=== PATIENT | male | born 1940 | race Caucasian/White ===

== ENCOUNTER 2017-04-07 13:00 | Inpatient (IN) | payer MEDICARE, OTHER ==
[~2017-04-07] VITALS: Ht 177.8 cm; Wt 84.0 kg
--- NOTE | ~2017-04-07 | CON ---
PATIENT'S NAME: JANIS DONNELLY [facility] AGE: 76 Y [address] ROOM: [place] [address] LOCATION: [facility] ADMIT DATE: 04/14/2017 Consultation DISCHARGE DATE: FAMILY PHYSICIAN: Jim Leong MD ATTENDING PHYSICIAN: DAFNE KELLY DATE OF CONSULTATION: 04/14/2017 REFERRING PHYSICIAN: Dafne Kelly MD CONSULTING PHYSICIAN: Dr. Schulte. REASON FOR CONSULTATION: Postoperative management. HISTORY OF PRESENT ILLNESS: The patient is a 76-year-old male who is postop day 0 for a left shoulder arthroplasty. The patient is fairly healthy, but has been recently worked up for evidence of nonischemic cardiomyopathy though that appears to have corrected either by itself or with the medications. At this point, he is resting comfortably after the surgery and reports no complaints. It was communicated to me that he may have had some hyperkalemia issues prior to the surgery and was supposed to have a potassium checked, but there was not. REVIEW OF SYSTEMS: All systems have been reviewed and negative except for pertinent positives as mentioned above. PAST MEDICAL HISTORY: Essential hypertension, hypercholesterolemia, and recent cardiac catheterization showing nonobstructive coronary artery disease. The catheterization was done for a low ejection fraction though that ejection fraction has since then improved. SOCIAL HISTORY: The patient has no active toxic habits and still actively farms. FAMILY HISTORY: Family history was reviewed and noncontributory due to his advanced age. PATIENT'S NAME: CONYSAKINAJANIS [facility] AGE: 76 Y [address] ROOM: [place] [address] LOCATION: [facility] ADMIT DATE: 04/14/2017 Consultation DISCHARGE DATE: FAMILY PHYSICIAN: Jim Leong MD ATTENDING PHYSICIAN: DAFNE KELLY CURRENT MEDICATIONS: 1. Acetaminophen. 2. Aspirin. 3. Carvedilol. 4. Docusate. 5. Furosemide 40. 6. Losartan/hydrochlorothiazide. 7. Multivitamin. 8. Potassium chloride. 9. Pravastatin. 10. Sennosides. PHYSICAL EXAMINATION: VITAL SIGNS: Temperature 97.6, pulse is 80, respirations 16, blood pressure 129/69, and satting 92% on room air. GENERAL: Well-developed, well-nourished elderly male in no acute distress. NEUROLOGIC: Nonfocal. EYES: Exam shows pupils are equal and reactive to light. LYMPHATICS: Exam shows no cervical lymphadenopathy. ENDOCRINE: Exam shows no thyromegaly. LUNGS: Clear to auscultation. HEART: Regular with no appreciable murmurs, gallops, or rubs. ABDOMEN: Soft, nontender, nondistended. : No costovertebral angle tenderness. VASCULAR: A 2+ pedal pulses. MUSCULOSKELETAL: Deferred. PSYCHIATRIC: Appropriate mood, cognition, and affect. SKIN: Warm and dry. LABORATORY DATA: His labs are still pending. IMPRESSION AND RECOMMENDATIONS: This is a 76-year-old male postop day 0 for a left shoulder arthroplasty. Individual problems to be addressed are: 1. Pain control has been addressed by Primary Service. 2. Deep vein thrombosis prophylaxis has been addressed by Primary Service. 3. Hyperkalemia, as reported, we will check the patient's potassium level and address his Lasix/as well as hydrochlorothiazide/losartan as well as potassium supplementation based on results of the tests. Additional management will depend on clinical course. We will follow the patient with you. Thank you for allowing us to participate in the care of this pleasant gentleman. Time dedicated to this patient encounter is 25 minutes. PATIENT'S NAME: JANIS DONNELLY [facility] AGE: 76 Y [address] ROOM: [place] [address] LOCATION: [facility] ADMIT DATE: 04/14/2017 Consultation DISCHARGE DATE: FAMILY PHYSICIAN: Jim Leong MD ATTENDING PHYSICIAN: DAFNE KELLY MD ASIA SHI/lisa /[id number] d: 04/15/17 0236 t: 04/25/17 1718, CONSULTATION REPORT
--- NOTE | ~2017-04-07 | OR ---
PATIENT'S NAME: JANIS DONNELLY [facility] AGE: 76 Y [address] ROOM: [place] [address] LOCATION: [facility] ADMIT DATE: 04/14/2017 OR/Procedure Report DISCHARGE DATE: 04/15/2017 FAMILY PHYSICIAN: Jim Leong MD ATTENDING PHYSICIAN: Kuldeep Kelly SURGEON: Kuldeep Kelly MD CUSTODIAL SERVICES MANAGER: 1. Mal Poe CST/COMMUTER PILOT. 2. Fili Conley. DATE OF PROCEDURE: 04/14/2017 PREOP/POSTOP DX CORRECTED PER DR. 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 POSTOPERATIVE DIAGNOSES: 1. 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 2. Rotator cuff tear, rotator cuff tendinosis and partial thickness biceps tendon tear. PROCEDURE PERFORMED: 1. Left reverse total shoulder arthroplasty. 2. Biceps tenodesis. ANESTHESIA: General endotracheal anesthesia plus subcutaneous and periarticular local anesthesia (ropivacaine with epinephrine and Toradol). DRAINS: None. SPECIMEN: None. COMPLICATIONS: None. ESTIMATED BLOOD LOSS: Approximately 150 mL. IMPLANTS: 1. [employer] SureLock suture anchor x1. 2. Biomet comprehensive reverse total shoulder arthroplasty system: 16 mm x 83 mm porous plasma uncemented humeral component with 44 mm comprehensive reverse total shoulder arthroplasty humeral tray with locking ring, 40 mm standard humeral ArCom XL polyethylene insert with 36 mm radius of curvature. 3. Porous plasma uncemented 28 mm reverse total shoulder arthroplasty glenoid baseplate with 6.5 mm central locking screw x1 and 4.75 mm peripheral locking screws x4 and 36 mm Glenosphere with eccentric taper adaptor. PATIENT'S NAME: JANIS DONNELLY [facility] AGE: 76 Y [address] ROOM: [place] [address] LOCATION: [facility] ADMIT DATE: 04/14/2017 OR/Procedure Report DISCHARGE DATE: 04/15/2017 FAMILY PHYSICIAN: Jim Leong MD ATTENDING PHYSICIAN: Kuldeep Kelly INDICATION FOR PROCEDURE: Mr. Donnelly is a 76-year-old male presenting with severe left shoulder pain and dysfunction. There is deformity of his lesser tuberosity (consistent with previous proximal humerus fracture). Risks, benefits, limitations, and alternatives to this procedure have been thoroughly reviewed, and informed consent has been granted. We have specifically reviewed risks and implications of infection, neurovascular complications, stiffness, instability, wear, loosening, and potential need for further surgery. Informed consent has been granted. DESCRIPTION OF PROCEDURE: The patient was placed in a modified beach chair position after administration of general endotracheal anesthesia and prophylactic antibiotics. Examination under anesthesia demonstrated mild infraspinatus fossa atrophy. There were no active skin lesions or masses. There was no erythema. There was no abnormal warmth. There was significant crepitation with passive range of motion. Passive forward elevation was limited to 100 degrees. Passive external rotation was limited to 10 degrees. The left shoulder and left upper extremity were prepped and draped with vigilant sterile technique. The left shoulder was approached through a standard deltopectoral incision. Subcutaneous tissues were infiltrated with 0.5% Marcaine with epinephrine. The cephalic vein was identified, and the deltopectoral interval was bluntly developed. The cephalic vein was mobilized laterally with the deltoid. The axillary nerve was identified and was vigilantly protected throughout the entire case. There was a hypertrophic anteriorly displaced deformity of the lesser tuberosity (as suggested by the preoperative axillary radiographic view) which created significant impingement on the biceps tendon. There is a 1 cm defect at the infraspinatus tendon insertion. The supraspinatus tendon was extremely attenuated. The subscapularis tendon was attenuated, but intact. Given the compromised state of the rotator cuff, I felt that a reverse total shoulder arthroplasty would give the patient the most predictable results. The subscapularis tendon and anterior capsule were divided longitudinally and tagged for later repair. The humeral head was dislocated anteriorly. There was a large inferior humeral head osteophyte. This was resected together with the anterior humeral head osteophyte. The humeral canal was reamed by hand up to a size 16. The size 16 reamer tightly engaged the endosteal cortex of the proximal humerus. The proximal humerus was broached to a size 16. The undersurface of the supraspinatus tendon demonstrated high-grade partial-thickness tearing. The remainder of the supraspinatus tendon was released. There was 50% thickness partial tearing of the bicipital tendon at the proximal margin of the intertubercular groove. The biceps tendon was released and tenodesed to the intertubercular groove using all 4 strands of the [employer] SureLock suture anchor. Circumferential glenoid exposure was obtained. It should be noted that there PATIENT'S NAME: JANIS DONNELLY [facility] AGE: 76 Y [address] ROOM: [id number] [place], [place] [address] LOCATION: [facility] ADMIT DATE: 04/14/2017 OR/Procedure Report DISCHARGE DATE: 04/15/2017 FAMILY PHYSICIAN: Jim Leong MD ATTENDING PHYSICIAN: Kuldeep Kelly was full-thickness loss of articular cartilage throughout the entire glenoid and throughout 90% of the humeral head. Degenerative remnants of the intra- articular portion of the biceps tendon and the glenoid labrum were sharply excised. The glenoid face was reamed over a guidewire. The glenoid baseplate was impacted into position and obtained an excellent pressfit. This was supplemented with a central 6.5 mm locking screw and 4 peripheral 4.75 mm locking screws (all of which obtained excellent purchase). Trial reductions with a trial glenosphere were performed in order to optimize orientation of the offset taper adaptor. The final glenosphere was impacted into position and obtained an excellent pressfit. Circumferential digital palpation confirmed that the glenosphere was securely deployed and firmly seated. The final humeral component was impacted into position. Final trial reductions were performed, and trial reduction confirmed appropriate soft tissue tension, excellent range of motion, absence of impingement, absence of instability, and absence of significant tension on the axillary nerve. The trunnion was thoroughly cleansed and dried, and the final humeral baseplate and humeral insert were impacted into position. A final reduction was performed. Range of motion and stability were reconfirmed to be excellent. The entire incision and entire joint space were thoroughly irrigated with bacteriostatic pulsatile saline lavage at this point as well as several times throughout the case. Absence of tension on the axillary nerve was once again confirmed. The subscapularis tendon was repaired with multiple [id number] interrupted #2 Orthocord sutures. Periarticular soft tissues and subcutaneous tissues were infiltrated with local anesthetic. The incision was closed with simple deep interrupted 0 Vicryl followed by superficial buried interrupted 2- 0 Vicryl followed by a running subcuticular 3-0 Monocryl suture, followed by Dermabond, followed by Steri-Strips with benzoin. The dressing consisted of an occlusive Mepilex dressing. A shoulder immobilizer was placed, and the patient was extubated and transported to the Postanesthesia Care Unit in stable, comfortable condition. Postoperative radiographs demonstrated a well-fixed, well-aligned, uncemented reverse total shoulder arthroplasty construct with no complicating features. The patient was noted to be neurovascularly intact postoperatively. He had a PATIENT'S NAME: JANIS DONNELLY [facility] AGE: 76 Y [address] ROOM: [place] [address] LOCATION: [facility] ADMIT DATE: 04/14/2017 OR/Procedure Report DISCHARGE DATE: 04/15/2017 FAMILY PHYSICIAN: Jim Leong MD ATTENDING PHYSICIAN: Kuldeep Kelly 2+ radial pulse. Median, radial, and ulnar nerve, motor and sensory function were normal at the left hand, and voluntary contraction of the deltoid was strong. MD MARCELA CUMMINGS/lisa /[id number] PREOP/POSTOP DX CORRECTED PER DR. KELLY / 06-09-2017 / KLD d: 04/15/17 0702 t: 06/22/17 1311, OPERATIVE SUMMARY
[~2017-04-07 13:00] MED LIST: ALDACTONE25 MG PO; ALEVE220 M1 PO; ASPIR-LOW81 MG PO; BAYER CHILD81 MG PO; CARDIZEM CD (T300 MG PO; CENTRUM SILVER1 TAB PO; COREG12.5 MG PO; HYDROCODON-ACE1 EAC4 PO; LOSARTAN-HCTZ1 EAC1 PO; LOVENOX 3030 MG/0.3 SUB-Q; PRAVACHOL40 MG PO; SENNA PLUS TAB1 EACH PO; STOOL SOFTENER100 MG PO; VEGETABLE LAXA8.6 MG PO
[2017-04-07] MEDS ORDERED: LASIX40 MG PO (13:36)
[2017-04-07] MEDS ORDERED: TYLENOL EXTRA500 MG PO (13:39)
[2017-04-07] MEDS ORDERED: KLOR-CON M2020 MEQ PO (14:26)
--- NOTE | 2017-04-14 18:45 | NUR ---
Significant Event: PT ARRIVED ON FLOOR FROM PACU AT 1730. POST OP VITALS CONT. ICE TO LT SHOULDER. RATES PAIN AT A 6. NO VOID YET. 1999 ON IS. AT BEDSIDE. SLING SLEEVE TO LT ARM. TYLENOL AT 1700. DILAUDID AT 1653. Follow up:
[2017-04-15 01:15] LABS: ANION GAP 10.6 (10.0-19.0); CALCIUM 8.6 mg/dL (8.5-10.5); CREATININE 1.4 mg/dL (0.6-1.3); POTASSIUM 3.6 mMol/L (3.7-5.1)
--- NOTE | 2017-04-15 04:44 | NUR ---
Shift Summary: Patient can ambulate with one assist and a gait belt. Has full sensation to left arm/hand. minimal pain. Last Diludid at 2311. Tolerating regular diet well. Voiding without difficulty. Possible discharge home this afternoon.
[2017-04-15] MEDS ORDERED: ECOTRIN325 MG PO (11:29)
[2017-04-15] MEDS ORDERED: MIRALAX17 GM PO (11:30)
[2017-04-15] MEDS ORDERED: DILAUDID 2MG(HYD2 MG PO (11:31)
--- NOTE | 2017-04-15 14:39 | NUR ---
pt and his given discharge instructions and voices understanding. drssing cares and medications reviewed with pt. pain meds given prior to discharge. ice packs sent home with pt. escorted to the front door by curly fagan.
== END 2017-04-15 14:15 | disposition disaster alternative care site (69) | DRG 483 ==
LOC: G3N 04-14 10:34
PROVIDERS: ADMIT Orthopaedic Surgery
PROC: 0RRK00Z Replacement of Left Shoulder Joint with Reverse Ball and Socket Synthetic Substitute, Open Approach (ICD-10-PCS; principal; 2017-04-14)
PROC: 0LS40ZZ Reposition Left Upper Arm Tendon, Open Approach (ICD-10-PCS; principal; 2017-04-14)
DX: M19.012 Primary osteoarthritis, left shoulder (principal); E87.5 Hyperkalemia; I13.0 Hypertensive heart and chronic kidney disease with heart failure and stage 1 through stage 4 chronic kidney disease, or unspecified chronic kidney disease; I50.22 Chronic systolic (congestive) heart failure; M75.102 Unspecified rotator cuff tear or rupture of left shoulder, not specified as traumatic; S46.119A Strain of muscle, fascia and tendon of long head of biceps, unspecified arm, initial encounter; N18.3 Chronic kidney disease, stage 3 (moderate)
CPT/HCPCS: C1713; C1776; J0690; J1100; J1885; J2001; J2250; J2405; J2795; J3010; J7030; J7120